=== PATIENT | female | born 1990 | race Caucasian/White ===

== ENCOUNTER 2016-11-30 21:11 | Observation (INO) | payer BC, MEDICAID, OTHER ==
[~2016-11-30] VITALS: Ht 172.7 cm; Wt 84.0 kg
[~2016-11-30 21:11] MED LIST: IBUP-232 PO; Z.0.NO CURRENT MEDS
[2016-11-30 21:13] VITALS: BP 143/85; PULSE 118; RESP 18; TEMP 98.3; O2SAT 100
[2016-11-30] MEDS ORDERED: LORA1TAB12 PO (22:11)
[2016-11-30 22:31] VITALS: RESP 18; O2SAT 100
--- NOTE | 2016-11-30 22:46 | PD ---
HPI Chief Complaint: Neuro Symptoms/ Deficits Time Seen by Provider: 22:07 Travel History International Travel<30 days: No Contact w/Intl Traveler<30days: No Traveled to known affect area: No History of Present Illness HPI The patient is a 26 year old female who presents to the [facility] emergency department with a history of neurologic symptoms that she reports have been coming and going since Tuesday. The patient reports that on Tuesday when she woke up in general she did not feel well. She reports that she felt lightheaded throughout the day while she was at work. She reports that she then had a 1 hour onset of difficulty speaking with slowing of her speech. The patient reportedly called her and and was not able to have a conversation at that time. The patient reports that she felt generalized weakness of all of her extremities. She reports that she was extremely fatigued and was sent home from work to take a nap. The patient then decided to go to the emergency department jennifer Yang for evaluation and treatment. The patient diagnosed with anxiety and sent home with a prescription for lorazepam. The patient reports that she has taken 1 tablet. It is a 1 mg tablet and she proceeded to sleep for 12 hours. Subsequent to that, the patient has had 2 additional episodes similar to this today. The first episode lasted for approximately an hour and a half, the second episode began just prior to arrival back into the emergency department room. The patient is speaking clearly although her speech is slow with frequent pauses. The patient reports having generalized weakness and is very slow to move her extremities although she appears anxious and is tapping the fingers of the right hand. The only recent new symptoms that the patient has had include on Tuesday night at work she had a migraine headache. She reports that she does have a history of migraine headaches, however none recently. She reports that she taken over-the- counter pain reliever and the headache resolved after a few hours. She has not had any headache since then. The patient additionally reports that she has been taking a friend's oral contraceptive over the last 3 months. She reports that her friend became and gave her the 3 packs of pills. Last week she completed the last pack and has not started on any other oral contraceptive since then. She reports that over the last 3 months she has not had a period. The patient has a pill pack at the bedside and was taking lo Loestrin with iron. Otherwise all review systems, the patient denies any recent fevers, cough , congestion, neck pain, chest pain, shortness of breath, abdominal pain, diarrhea, urinary symptoms, or other neurologic symptoms. The patient reports that she has had some nausea associated with this. She has not had any vomiting. The patient has been under increased stress recently. She reports that her friend was recently diagnosed with leukemia 3 weeks ago. LMP: 3 months ago [facility] Past Medical History Narrative Medical The patient's past medical history is significant for migraine headache, history of marijuana use in the past. Medical History: Denies Significant Hx Diminished Hearing: No Tetanus Vaccination: Unknown Influenza Vaccination: No ?: Not Past Surgical History Narrative Surgical Patient's past surgical history is significant for wisdom teeth extraction. Other Surgery: Yes (WISDOM TEETH) Family History Narrative Family History The patient has a family history of bipolar disorder in her mother. Social History Alcohol Use: Yes (OCCASSIONALLY) Tobacco Use: No Substance Use: Yes ([facility]) Allergies-Medications (Allergen,Severity, Reaction): Coded Allergies: No Known Allergies (Verified , 11/30/16) Reported Meds & Prescriptions Reported Meds & Active Scripts Active Reported Lorazepam 1 Mg Tab 1 Mg PO DAILY PRN Physical Exam Narrative General: The patient is well-developed well-nourished female, intermittently tearful on examination, however otherwise in no acute distress. Head and Neck exam: Head is normocephalic atraumatic. Eyes: EOMI, pupils are equal round and reactive to light. Nose: Midline septum with pink mucous membranes Mouth: Dentition unremarkable. Moist mucus membranes. Posterior oropharynx is not erythematous. No tonsillar hypertrophy. Uvula midline. Airway patent. Neck: No palpable lymphadenopathy. No nuchal rigidity. No thyromegaly. Negative Brudzinski, negative Kernig sign Cardiovascular: Regular rate and rhythm without murmurs, gallops, or rubs. Lungs: Clear to auscultation bilaterally. No wheezes, rhonchi, or rales. Abdomen: Soft, without tenderness to palpation in all 4 quadrants of the abdomen. No guarding, rebound, or rigidity. Normal bowel sounds are audible. No tenderness on palpation of McBurney's point. Extremities: No clubbing, cyanosis, or edema. 2+ pulses in all 4 extremities. Back: No spinous process tenderness to palpation. No costovertebral angle tenderness to palpation. Neurologic Exam: The patient is alert and oriented 4. The patient has cranial nerves II through XII intact. The patient on exam is very slow to answer questions, however her answers are appropriate. The patient is also slow to perform musculoskeletal neurologic testing, however she does have strength that is 5 over 5 in all 4 extremities. The patient has intact sensation over all dermatomes. Skin Exam: No rash noted. Intact skin that is warm and dry. Data Data Last Documented VS Vital Signs Date Time Temp Pulse Resp B/P (MAP) Pulse Ox O2 Delivery O2 Flow Rate FiO2 11/30/16 22:31 18 100 Room Air 11/30/16 21:13 98.3 118 Orders Orders Electrocardiogram (11/30/16 22:15) Complete Blood Count With Diff (11/30/16 22:15) Comprehensive Metabolic Panel (11/30/16 22:15) Prothrombin Time / Inr (Pt) (11/30/16 22:15) Act Partial Throm Time (Ptt) (11/30/16 22:15) Urinalysis - C+S If Indicated (11/30/16 22:15) Westergren Sedimentation Rate (11/30/16 22:15) Magnesium (Mg) (11/30/16 22:15) Thyroid Stimulating Hormone (11/30/16 22:15) Ct Brain W/O Iv Contrast(Rout) (11/30/16 22:15) Iv Access Insert/Monitor (11/30/16 22:15) Ecg Monitoring (11/30/16 22:15) Oximetry (11/30/16 22:15) Drug Screen, Random Urine (11/30/16 22:15) Alcohol (Ethanol) (11/30/16 22:15) Salicylates (Aspirin) (11/30/16 22:15) Tylenol (Acetaminophen) (11/30/16 22:15) Ed Urine Pregnancytest Poc (11/30/16 22:40) Potassium Chloride (Kcl) (12/01/16 00:15) Sodium Chlor 0.9% 1000 Ml Inj (Ns 1000 M (12/01/16 00:15) Ondansetron Inj (Zofran Inj) (12/01/16 00:15) Labs Laboratory Tests Test 11/30/16 22:38 11/30/16 22:54 White Blood Count 10.4 TH/MM3 Red Blood Count 4.60 MIL/MM3 Hemoglobin 14.5 GM/DL Hematocrit 43.3 % Mean Corpuscular Volume 93.9 FL Mean Corpuscular Hemoglobin 31.5 PG Mean Corpuscular Hemoglobin Concent 33.6 % Red Cell Distribution Width 13.3 % Platelet Count 251 TH/MM3 Mean Platelet Volume 8.0 FL Neutrophils (%) (Auto) 63.9 % Lymphocytes (%) (Auto) 29.4 % Monocytes (%) (Auto) 5.7 % Eosinophils (%) (Auto) 0.4 % Basophils (%) (Auto) 0.6 % Neutrophils # (Auto) 6.6 TH/MM3 Lymphocytes # (Auto) 3.0 TH/MM3 Monocytes # (Auto) 0.6 TH/MM3 Eosinophils # (Auto) 0.0 TH/MM3 Basophils # (Auto) 0.1 TH/MM3 CBC Comment DIFF FINAL Differential Comment Erythrocyte Sedimentation Rate 12 mm/hr Prothrombin Time 10.5 SEC Prothromb Time International Ratio 1.0 RATIO Activated Partial Thromboplast Time 27.2 SEC Blood Urea Nitrogen 15 MG/DL Creatinine 0.96 MG/DL Random Glucose 117 MG/DL Total Protein 8.0 GM/DL Albumin 4.0 GM/DL Calcium Level 9.5 MG/DL Magnesium Level 2.1 MG/DL Alkaline Phosphatase 74 U/L Aspartate Amino Transf (AST/SGOT) 21 U/L Alanine Aminotransferase (ALT/SGPT) 23 U/L Total Bilirubin 0.2 MG/DL Sodium Level 139 MEQ/L Potassium Level 3.4 MEQ/L Chloride Level 105 MEQ/L Carbon Dioxide Level 20.2 MEQ/L Anion Gap 14 MEQ/L Estimat Glomerular Filtration Rate 71 ML/MIN Thyroid Stimulating Hormone 3rd Gen 2.560 uIU/ML Salicylates Level LESS THAN 1.7 MG/DL Acetaminophen Level LESS THAN 2.0 MCG/ML Ethyl Alcohol Level LESS THAN 3 MG/DL Urine Color YELLOW Urine Turbidity CLEAR Urine pH 8.5 Urine Specific [place] 1.016 Urine Protein NEG mg/dL Urine Glucose (UA) NEG mg/dL Urine Ketones NEG mg/dL Urine Occult Blood NEG Urine Nitrite NEG Urine Bilirubin NEG Urine Urobilinogen LESS THAN 2.0 MG/DL Urine Leukocyte Esterase NEG Urine RBC 1 /hpf Urine WBC 1 /hpf Urine Squamous Epithelial Cells 1 /hpf Urine Bacteria RARE /hpf Microscopic Urinalysis Comment CULT NOT INDICATED Urine Opiates Screen NEG Urine Barbiturates Screen NEG Urine Amphetamines Screen NEG Urine Benzodiazepines Screen NEG Urine Cocaine Screen NEG Urine Cannabinoids Screen NEG MDM Medical Decision Making Medical Screen Exam Complete: Yes Emergency Medical Condition: Yes Medical Record Reviewed: Yes Interpretation(s) Last Impressions Head CT 11/30/16 2186 Signed Impressions: Service Date/Time: Wednesday, November 30, 2016 23:13 - CONCLUSION: 1. No acute intracranial abnormality. Roc Velez MD Differential Diagnosis Ischemic stroke, versus intracranial mass, versus multiple sclerosis, versus psychiatric disorder, versus Guillain-Carr, versus lupus cerebritis Narrative Course During the course of the patients emergency department visit, the patients history, examination, and differential diagnosis were reviewed with the patient. The patient had IV access obtained and blood work sent for analysis. The patient was placed on a night monitor with oximetry and blood pressure monitoring. CT scan of the brain was ordered. The patient was initially provided a normal saline 1 L IV fluid bolus, Zofran 4 mg IV. patients laboratory studies were reviewed and remarkable for a white count of 10.4, hemoglobin 14.5, platelets 251 with a normal differential, sedimentation rate is 12, CMP is remarkable for potassium of 3.4, CO2 20.2, glucose 117, TSH 2.56, PT PTT within normal limits, urinalysis is unremarkable, urinalysis screen is negative, salicylate less than 1.7, acetaminophen less than 2, alcohol level less than 3. Radiology studies were reviewed and remarkable for a CT scan of the brain that shows no acute intracranial abnormality. The patient was reexamined. The patient's symptoms have completely resolved. The patient is awake and alert, speaking at a normal rate. The patient is moving all extremities equally with 5 over 5 strength. The patient incidentally reports that over the last year she has also had difficulty with short-term memory. The patient is agreeable with the plan to proceed with admission for observation and neurologic consultation including an MRI of the brain in the morning. The patients results were discussed with the patient, including the plan of care. I explained that further testing and/ or monitoring is indicated based on the patients history, examination, and/ or laboratory findings. Therefore, I recommended admission for additional evaluation. The patient expressed understanding and was agreeable with this plan. The patient was admitted to the hospital in stable condition and sent to a bed under the care of [facility]. Diagnosis Primary Impression: Transient neurological symptoms Admitting Information Admitting Physician Requests: Observation Saima Waterman MD Nov 30, 2016 22:46
[2016-11-30 23:00] VITALS: BP 134/84; PULSE 92; RESP 18; O2SAT 99
[2016-11-30 23:06] LABS: AUTOMATED NEUTROPHIL # 6.6 TH/MM3 (1.8-7.7); BASOPHIL # 0.1 TH/MM3 (0-0.2); BASOPHIL % 0.6 % (0.0-2.0); EOSINOPHIL % 0.4 % (0.0-4.0); HEMATOCRIT 43.3 % (35.0-46.0); HEMO FLAGS DIFF FINAL; LYMPH % 29.4 % (9.0-44.0); MEAN CELL VOLUME 93.9 FL (80.0-100.0); MEAN CORPUSCULAR HEMOGLOBIN 31.5 PG (27.0-34.0); MEAN CORPUSCULAR HGB CONC 33.6 % (32.0-36.0); MONO % 5.7 % (0.0-8.0); NEUT % 63.9 % (16.0-70.0); PLATELET COUNT 251 TH/MM3 (150-450); RED CELL DISTRIBUTION WIDTH 13.3 % (11.6-17.2); WHITE BLOOD COUNT 10.4 TH/MM3 (4.0-11.0)
[2016-11-30 23:15] LABS: APTT (PATIENT) 27.2 SEC (24.3-30.1); PROTHROMBIN TIME - PATIENT 10.5 SEC (9.8-11.6)
[2016-11-30 23:16] LABS: BACTERIA, URINE RARE /hpf; BLOOD, URINE NEG (NEG); COMMENT (UR) CULT NOT INDICATED; CULTURE IF INDICATED CULT NOT INDICATED; GLUCOSE,URINE NEG (NEG); KETONE, URINE NEG (NEG); NITRITE,URINE NEG (NEG); PH, URINE 8.5 (5.0-8.5); SQUAMOUS EPITHELIAL CELL URINE 1 /hpf (0-5); URINE COLOR YELLOW (YELLW/STRAW)
[2016-11-30 23:34] LABS: ALT (GPT) 23 U/L (10-53)
--- NOTE | 2016-11-30 23:36 | RADRPT ---
EXAM DATE/TIME: 11/30/2016 23:13 [place] COMPARISON: No previous studies available for comparison. INDICATIONS : Altered mental status. RADIATION DOSE: 56.35 CTDIvol (mGy) MEDICAL HISTORY : None SURGICAL HISTORY : None. ENCOUNTER: Initial ACUITY: 1 day PAIN SCALE: 0/10 LOCATION: cranial TECHNIQUE: Multiple contiguous axial images were obtained of the head. Using automated exposure control and adj ustment of the mA and/or kV according to patient size, radiation dose was kept as low as reasonably a chievable to obtain optimal diagnostic quality images. DICOM format image data is available electro nically for review and comparison. FINDINGS: CEREBRUM: The ventricles are normal for age. No evidence of midline shift, mass lesion, hemorrhage or acute in farction. No extra-axial fluid collections are seen. POSTERIOR FOSSA: The cerebellum and brainstem are intact. The 4th ventricle is midline. The cerebellopontine angle i s unremarkable. EXTRACRANIAL: The visualized portion of the orbits is intact. SKULL: The calvaria is intact. No evidence of skull fracture. CONCLUSION: 1. No acute intracranial abnormality. Roc Velez MD on November 30, 2016 at 23:33 Board Certified Radiologist. This report was verified electronically.
[2016-11-30 23:43] LABS: ALKALINE PHOSPHATASE 74 U/L (45-117); TOTAL BILIRUBIN ADULT 0.2 MG/DL (0.2-1.0)
[2016-11-30 23:53] LABS: ANION GAP 14 MEQ/L (5-15); AST (GOT) 21 U/L (15-37); BICARBONATE 20.2 MEQ/L (21.0-32.0); BLOOD UREA NITROGEN 15 MG/DL (7-18); CHLORIDE 105 MEQ/L (98-107); GLOMERULAR FILTRATION RATE 71 ML/MIN (>89); MAGNESIUM 2.1 MG/DL (1.5-2.5); POTASSIUM 3.4 MEQ/L (3.5-5.1); SODIUM (NA) 139 MEQ/L (136-145)
[2016-11-30 23:56] LABS: ACETAMINOPHEN LESS THAN 2.0 MCG/ML (10.0-30.0); ALCOHOL LESS THAN 3 MG/DL (0-5)
[2016-12-01] VITALS (13 sets, daily range): BP systolic 108–146; BP diastolic 59–89; PULSE 57–90; RESP 16–18; TEMP 97.4–98.4; O2SAT 98–100
[2016-12-01] MEDS ORDERED: POTASSIUM CHLORIDE 20 MEQ CONTROLLED RELEASE TAB PO ONE (00:15)
[2016-12-01] MEDS ORDERED: SODIUM CHLOR 0.9% 1000 ML INJ 1,000 ML IV ONE (00:15)
[2016-12-01] MEDS ORDERED: ONDANSETRON HCL 4 MG/2 ML VIAL IV ONE (00:15)
[2016-12-01] MEDS ORDERED: SODIUM CHLORIDE 0.9% FLUSH 5 ML FLUSH IV FLUSH PRN (01:00)
--- NOTE | 2016-12-01 01:55 | HHI.HP ---
[facility] Primary [facility] Physician Unknown Admission Diagnosis Transient intermittent neurologic symptoms Diagnoses: Travel History International Travel<30 Days: No Contact w/Intl Traveler <30 Da: No Traveled to Known Affected Are: No History of Present Illness History from patient, ER physician communication, and review of medical records. Patient reported that starting Tuesday around 3:30 PM, she was having trouble speaking. 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 When this event happens, her roommate had called her aunt in [facility] Her aunt told her to call 911 and one in the ambulance personnel came to her house, patient stated she was hyperventilating and they had to calm her down with some medications. She stated she possibly came back to speaking to her normal when they actually put in an IV line on her. She stated this might be because of the pain. She was discharged from ER after minimal workup with blood work. No imaging studies were done as further she remembers. She was discharged home on Ativan and was told to take it one she has panic attacks. She stated that she took one last night and had slept for 12 hours with it. Today, patient was visiting her friend in [facility] is in hospital with leukemia. After her visit to the friend, she visited her aunt and at her aunt's house, she stated that the episode happens again where she felt she was not able to speak, she felt drowsy, feeling as though she was given to faint and "woozy". She then again got panicked because of this feeling and started hyperventilating. She reports that the events did not start with panic attack. She states the panic attacks happens because she was having trouble speaking and feeling drowsiness and almost passing out. The aunt and encouraged her to come to hospital here. Patient reports of prior episode of anxiety but this was one she had severe stress from school. She reports that at that time she was started on Latuda which helped. She did not need it after she finished the school. She denies any prior history of any medical conditions. She was taking oral contraceptives up until about a week ago for about 3 months. She denies any marijuana use T use. Denies any prior history of seizures. However she reports of history of migraines many years ago. She also recalls now that on Tuesday before these events, she was having pretty severe headaches Patient also reports of having had trouble with depth perception and memory problems for about a year. She reports that she visited [place] about a year ago and had severe vertigo after which she had this depth perception problems. Review of Systems Except as stated in HPI: all other systems reviewed are Neg Past Family Social History Past Medical History migraines- not even on prophylactic control meds heart tolbert Past Surgical History wisdom teeth sx Allergies: Coded Allergies: No Known Allergies (Verified , 11/30/16) Family History mom- bipolar, migraines, lactose intolerant; 7 yrs ago grandfather and uncles- mi in their 70s Social History never really smoked social drinker no drugs - once or twice marijuna, in distant past Physical Exam Vital Signs Vital Signs Date Time Temp Pulse Resp B/P (MAP) Pulse Ox O2 Delivery O2 Flow Rate FiO2 12/01/16 01:17 70 18 109/67 (81) 99 Room Air 11/30/16 23:00 92 18 134/84 (101) 99 Room Air 11/30/16 22:31 18 100 Room Air 11/30/16 21:13 98.3 118 18 143/85 (104) 100 Physical Exam GENERAL: This is a well-nourished, well-developed patient, in no apparent distress. SKIN: No rashes, ecchymoses or lesions. Cool and dry. HEAD: Atraumatic. Normocephalic. No temporal or scalp tenderness. EYES: No scleral icterus. No injection or drainage. ENT: Nose without bleeding, purulent drainage or septal hematoma. Airway patent. NECK: Trachea midline. No JVD CARDIOVASCULAR: Regular rate and rhythm without murmurs, gallops, or rubs. RESPIRATORY: Clear to auscultation. Breath sounds equal bilaterally. No wheezes , rales, or rhonchi. GASTROINTESTINAL: Abdomen soft, non-tender, nondistended. No guarding. MUSCULOSKELETAL: Extremities without clubbing, cyanosis, or edema. . No calf tenderness. NEUROLOGICAL: Awake and alert. Motor and sensory grossly within normal limits. Normal speech. Laboratory Laboratory Tests Test 11/30/16 22:38 11/30/16 22:54 White Blood Count 10.4 Red Blood Count 4.60 Hemoglobin 14.5 Hematocrit 43.3 Mean Corpuscular Volume 93.9 Mean Corpuscular Hemoglobin 31.5 Mean Corpuscular Hemoglobin Concent 33.6 Red Cell Distribution Width 13.3 Platelet Count 251 Mean Platelet Volume 8.0 Neutrophils (%) (Auto) 63.9 Lymphocytes (%) (Auto) 29.4 Monocytes (%) (Auto) 5.7 Eosinophils (%) (Auto) 0.4 Basophils (%) (Auto) 0.6 Neutrophils # (Auto) 6.6 Lymphocytes # (Auto) 3.0 Monocytes # (Auto) 0.6 Eosinophils # (Auto) 0.0 Basophils # (Auto) 0.1 CBC Comment DIFF FINAL Differential Comment Erythrocyte Sedimentation Rate 12 Prothrombin Time 10.5 Prothromb Time International Ratio 1.0 Activated Partial Thromboplast Time 27.2 Blood Urea Nitrogen 15 Creatinine 0.96 Random Glucose 117 Total Protein 8.0 Albumin 4.0 Calcium Level 9.5 Magnesium Level 2.1 Alkaline Phosphatase 74 Aspartate Amino Transf (AST/SGOT) 21 Alanine Aminotransferase (ALT/SGPT) 23 Total Bilirubin 0.2 Sodium Level 139 Potassium Level 3.4 Chloride Level 105 Carbon Dioxide Level 20.2 Anion Gap 14 Estimat Glomerular Filtration Rate 71 Thyroid Stimulating Hormone 3rd Gen 2.560 Salicylates Level LESS THAN 1.7 Acetaminophen Level LESS THAN 2.0 Ethyl Alcohol Level LESS THAN 3 Urine Color YELLOW Urine Turbidity CLEAR Urine pH 8.5 Urine Specific [place] 1.016 Urine Protein NEG Urine Glucose (UA) NEG Urine Ketones NEG Urine Occult Blood NEG Urine Nitrite NEG Urine Bilirubin NEG Urine Urobilinogen LESS THAN 2.0 Urine Leukocyte Esterase NEG Urine RBC 1 Urine WBC 1 Urine Squamous Epithelial Cells 1 Urine Bacteria RARE Microscopic Urinalysis Comment CULT NOT INDICATED Urine Opiates Screen NEG Urine Barbiturates Screen NEG Urine Amphetamines Screen NEG Urine Benzodiazepines Screen NEG Urine Cocaine Screen NEG Urine Cannabinoids Screen NEG Result Diagram: 11/30/16223711/30/162237 Imaging Last [address] 11/30/162214 Signed Impressions: Service Date/Time: Wednesday, November 30, 2016 23:13 - CONCLUSION: 1. No acute intracranial abnormality. Roc Bozorgmanesh, MD Caprini VTE Risk Assessment Caprini VTE Risk Assessment: No/Low Risk (score <= 1) Caprini Risk Assessment Model Point Value = 1 Point Value = 2 Point Value = 3 Point Value = 5 Age 41-60 Minor surgery BMI > 25 kg/m2 Swollen legs Varicose veins or History of unexplained or recurrent spontaneous Oral contraceptives or hormone replacement Sepsis (< 1 month) Serious lung disease, including pneumonia (< 1 month) Abnormal pulmonary function Acute myocardial infarction Congestive heart failure (< 1 month) History of inflammatory bowel disease Medical patient at bed rest Age 61-74 Arthroscopic surgery Major open surgery (> 45 min) Laparoscopic surgery (> 45 min) Malignancy Confined to bed (> 72 hours) Immobilizing plaster cast Central venous access Age >= 75 History of VTE Family history of VTE Factor V Leiden Prothrombin [id number] Lupus anticoagulant Anticardiolipin antibodies Elevated serum homocysteine Heparin-induced thrombocytopenia Other congenital or acquired thrombophilia Stroke (< 1 month) Elective arthroplasty Hip, pelvis, or leg fracture Acute spinal cord injury (< 1 month) Prophylaxis Regimen Total Risk Factor Score Risk Level Prophylaxis Regimen 0-1 Low Early ambulation 2 Moderate Order ONE of the following: *Sequential Compression Device (SCD) *Heparin 5000 units SQ BID 3-4 Higher Order ONE of the following medications: *Heparin 5000 units SQ TID *Enoxaparin/Lovenox 40 mg SQ daily (WT < 150 kg, CrCl > 30 mL/min) *Enoxaparin/Lovenox 30 mg SQ daily (WT < 150 kg, CrCl > 10-29 mL/min) *Enoxaparin/Lovenox 30 mg SQ BID (WT < 150 kg, CrCl > 30 mL/min) AND/OR *Sequential Compression Device (SCD) 5 or more Highest Order ONE of the following medications: *Heparin 5000 units SQ TID (Preferred with Epidurals) *Enoxaparin/Lovenox 40 mg SQ daily (WT < 150 kg, CrCl > 30 mL/min) *Enoxaparin/Lovenox 30 mg SQ daily (WT < 150 kg, CrCl > 10-29 mL/min) *Enoxaparin/Lovenox 30 mg SQ BID (WT < 150 kg, CrCl > 30 mL/min) AND *Sequential Compression Device (SCD) Assessment and Plan Assessment and Plan Impression: Transient Neurological Deficits- r/o seizures vs MS vs TIAs Possible migraine attacks- atypical Plan: neurochecks eeg MRI of brain neurology consult orthostatic vitals DVT prophylaxis with SCD Discussed Condition With patient, ER Tera Montes MD Dec 01, 2016 01:55
--- NOTE | 2016-12-01 09:59 | MB ---
cc: REBEKAH GOLDSTEIN M.D. DATE OF CONSULTATION 12/01/2016 REASON FOR CONSULTATION Neurological change. HISTORY OF PRESENT ILLNESS This is a pleasant 26-year-old female who since Tuesday has had several episodes where her whole body feels heavy. She cannot lift her arms or legs because of weakness. She feels numb diffusely and cannot talk at all. It lasts various periods of times several minutes up to an hour or two and then resolves. Sometimes she has a headache afterwards. Some times she does not with photophobia and nausea. She feels anxious afterwards. She went to an ER in [place]. They felt it was anxiety, gave her Ativan, but she still had several episodes with several yesterday as well. PAST MEDICAL HISTORY History of migraine headaches. Otherwise unremarkable. MEDICATIONS None ALLERGIES None FAMILY HISTORY Her mother has migraine headaches, bipolar disorder. SOCIAL HISTORY No drug abuse, currently does not smoke, drinks alcohol rarely. NEUROLOGIC EXAMINATION VITAL SIGNS: Blood pressure 108/59 supine, standing 121/76, pulse 57, respirations 16, temperature 97.7 degrees. Higher cortical functions normal. Cranial nerves II-XII are normal in detail. Motor exam 5/5 strength of all groups in both upper and lower extremities. There is no drift. Reflexes symmetric. There is no Babinski. CT brain normal. LABORATORY DATA White count is 10,400, hemoglobin is 14.5, hematocrit 43%, platelets 251,000, sed rate is 12. Sodium is 139, potassium 3.4, chloride 105, CO2 20, the BUN is 15, creatinine 0.96, GFR 71, glucose 117, calcium 9.5, AST 29, ALT 23, TSH 2.56, PT 10.59, INR 1, APTT 27.2. Tox screen is negative. Urinalysis, pH is 8.5, specific gravity 1.016. IMPRESSION Possible basilar artery migraine rule out basilar artery TIA, rule out demyelinating disease such as MS, rule out psychological etiologies. RECOMMENDATIONS Start aspirin for possible TIA, also check hypercoagulable workup, as well as an echocardiogram. I would like to get an MRI of the brain as well as an MRA of the brain as well as an MRA of the neck. Consider transesophageal echo as well. We will start Topamax for possible migraine prophylaxis, also EEG. MD JOSE L Talbert /9:09 AM /9:44 AM
[2016-12-01 10:23] LABS: HEMOGLOBIN A1a 1.3 %; HEMOGLOBIN A1b 1.6 %; HEMOGLOBIN Ao 86.2 %; HEMOGLOBIN P3 3.4 %
[2016-12-01] MEDS ORDERED: GADODIAMIDE PF 287 MG/ML 20 ML VIAL (for RAD MRI) IVCONTRAST ONE (11:39)
[2016-12-01] MEDS: ASPIRIN 325 MG TAB PO SCH (12:18)
[2016-12-01] MEDS: SODIUM CHLORIDE 0.9% FLUSH 5 ML FLUSH IV FLUSH SCH ×2 (12:18→20:44)
[2016-12-01] MEDS: TOPIRAMATE 25 MG TAB PO SCH ×2 (12:19→20:42)
--- NOTE | 2016-12-01 12:49 | RADRPT ---
EXAM DATE/TIME: 12/01/2016 11:36 [facility] COMPARISON: No previous studies available for comparison. INDICATIONS : TIA. Intermittent loss of speech, motor functions, and memory loss. CONTRAST: 20 cc Omniscan (gadodiamide) IV MEDICAL HISTORY : None. SURGICAL HISTORY : None. ENCOUNTER: Subsequent ACUITY: 2 day PAIN SCORE: 0/10 LOCATION: head. TECHNIQUE: Multiplanar, multisequence MRI of the brain was performed both prior to and following the administrat ion of paramagnetic contrast. FINDINGS: CEREBRUM: The ventricles are normal for age. No evidence of midline shift, mass lesion, hemorrhage or acute in farction. No extraaxial fluid collections are seen. The pituitary gland and suprasellar cistern are normal in configuration. WHITE MATTER: No significant signal abnormalities are seen in the white matter. POSTERIOR FOSSA: The cerebellum and brainstem are intact. The 4th ventricle is midline. The cerebellopontine angle is unremarkable. The cerebellar tonsils are normal in position. DIFFUSION IMAGING: No focal areas of restricted diffusion are seen. No evidence of acute infarction. EXTRACRANIAL: The visualized portions of the orbits and paranasal sinuses are unremarkable. POST-CONTRAST: No abnormal areas of parenchymal or dural enhancement. No evidence of blood-brain barrier breakdown. CONCLUSION: Negative MRI of the brain with and without contrast. Lucas Palomo MD on December 01, 2016 at 12:46 Board Certified Radiologist. This report was verified electronically.
--- NOTE | 2016-12-01 12:50 | RADRPT ---
EXAM DATE/TIME: 12/01/2016 11:36 [facility] COMPARISON: No previous studies available for comparison. INDICATIONS : TIA. Intermittent loss of speech, motor functions, and memory loss. MEDICAL HISTORY : None. SURGICAL HISTORY : None. ENCOUNTER: Subsequent ACUITY: 2 day PAIN SCORE: 0/10 LOCATION: head. Please note a normal MRA of the brain does not entirely exclude the possibility of a small aneurysm, nor the possibility of distal intracranial vessel disease. TECHNIQUE: 3D time of flight MRA was performed. Source images, multiplanar STS MIP, and 3D volume MIP reconstru ctions were reviewed. FINDINGS: There is excellent visualization of the major intracranial arteries out to the second-order branch ve ssels. There is no evidence for aneurysm, vessel truncation or stenosis, and no evidence for vascula r malformation. Flow is seen in the anterior communicating artery and both PCOM. CONCLUSION: Normal MRA of the [place]. Lucas Palomo MD on December 01, 2016 at 12:48 Board Certified Radiologist. This report was verified electronically.
--- NOTE | 2016-12-01 12:52 | RADRPT ---
EXAM DATE/TIME: 12/01/2016 11:36 [facility] COMPARISON: No previous studies available for comparison. INDICATIONS : Stenosis. Intermittent loss of speech, motor functions, and memory loss. CONTRAST: 20 cc Omniscan (gadodiamide) IV MEDICAL HISTORY : None. SURGICAL HISTORY : None. ENCOUNTER: Subsequent ACUITY: 2 day PAIN SCORE: 0/10 LOCATION: neck. Percent stenosis is calculated using the diameter of the stenotic region over the diameter of the nor mal distal internal carotid artery. TECHNIQUE: Bolus infused MRA of the extracranial circulation was performed using a neurovascular coil. Post pro cessing was performed including rotating subvolume maximum intensity projections of each carotid miguelina ry, rotating full volume maximum intensity projections of both carotid arteries, sagittal and coronal sliding thin slab reformations of each carotid artery, and left oblique sliding thin slab reformatio n through the aortic arch to include the origin of the arch branch vessels. FINDINGS: AORTIC ARCH: There is a two vessel origin of the great vessels from the aorta with common trunk of the right brach iocephalic and left carotid. No evidence of ostial narrowing. RIGHT CAROTID: The common carotid artery is intact. The carotid bulb has a normal configuration without ulceration or narrowing. The internal carotid artery lumen is smooth without stenosis. The external carotid ar maldonado is intact. LEFT CAROTID: The common carotid artery is intact. The carotid bulb has a normal configuration without ulceration or narrowing. The internal carotid artery lumen is smooth without stenosis. The external carotid ar maldonado is intact. VERTEBRALS: The vertebral arteries have a symmetric diameter. No stenotic lesions are seen. CONCLUSION: Negative carotid MRA Lucas Palomo MD on December 01, 2016 at 12:49 Board Certified Radiologist. This report was verified electronically.
--- NOTE | 2016-12-01 13:42 | EKG ---
Date Performed: 11/30/2016 Time Performed: 22:40:17 PTAGE: 26 years EKG: Sinus rhythm NORMAL ECG NO PREVIOUS TRACING DOCTOR: Dennys Waterman Interpretating Date/Time 12/01/2016 13:38:41
[2016-12-01 17:48] LABS: BETA HCG QUANT LESS THAN 1 MIU/ML (0-5)
[2016-12-02] VITALS: PULSE 78
[2016-12-02 03:26] VITALS: BP 116/64; PULSE 66; RESP 18; TEMP 97.5; O2SAT 98
[2016-12-02 04:00] VITALS: PULSE 66
--- NOTE | 2016-12-02 06:13 | MG ---
cc: JAC ANN MD Lab No: [id number] Date: 12/11/2016 Age: 26 Sex: F Race: EEG RECORD NUMBER [id number] DATE OF 1990 NOTE A 26-year-old with history of anxiety, migraine, difficulty with speech transiently. FINDINGS Posterior rhythm demonstrates 8-10 Hz activity, 20-50 microvolts, low amplitude beta in the frontal channels. Good anterior-posterior gradient. Good EEG variability and reactivity was appreciated. Photic stimulation produced an appropriate driving response. Hyperventilation performed. No abnormal response. Attenuation of background slowing, transition into drowsy state. Slight rhythmic theta T5, epoch 61. Higher amplitude beta/theta T3, epoch 65, followed by transition into drowsy, Stage I sleep with the appearance of vertex waves. Single lead EKG showing sinus rhythm. INTERPRETATION Normal awake/sleep EEG. Could consider extended EEG monitoring if clinically indicated. Jac Ann MD MG/SSB /8:24 PM /6:04 AM
[2016-12-02 07:11] VITALS: BP_SYST 109; BP_SYST 132; BP_SYST 136; BP_DIAS 72; BP_DIAS 79; PULSE 64; RESP 16; TEMP 97.8; O2SAT 98
[2016-12-02 07:15] VITALS: PULSE 63
[2016-12-02] MEDS ORDERED: SODIUM CHLOR 0.9% 1000 ML INJ 1,000 ML IV SCH (08:00)
[2016-12-02] MEDS: TOPIRAMATE 25 MG TAB PO SCH (08:11)
[2016-12-02] MEDS: ASPIRIN 325 MG TAB PO SCH (08:12)
[2016-12-02] MEDS: SODIUM CHLORIDE 0.9% FLUSH 5 ML FLUSH IV FLUSH SCH (08:12)
--- NOTE | 2016-12-02 11:27 | HHI.PR ---
Subjective Remarks Follow up for transient neurological deficits. Patient is doing well. No further episodes. No CP, SOB, fever, chills. Patient reports that she thought about what brings her symptoms on. She says..whenever she is trying to remember a past event, past memory, she experiences aphasia, inability move. Her aunts noticed this pattern too, according to patient. Objective Vitals Vital Signs Date Time Temp Pulse Resp B/P (MAP) Pulse Ox O2 Delivery O2 Flow Rate FiO2 12/02/16 07:15 63 12/02/16 07:11 97.8 64 16 109/72 (84) 98 132/72 (92) 136/79 (98) 12/02/16 04:00 66 12/02/16 03:26 97.5 66 18 116/64 (81) 98 12/02/16 00:00 78 12/01/16 20:00 84 12/01/16 19:19 97.4 74 18 121/78 (92) 99 12/01/16 15:56 77 12/01/16 15:45 98.4 62 16 124/76 (92) 98 139/82 (101) 141/73 (95) 12/01/16 12:26 98.0 90 16 119/77 (91) 100 146/82 (103) I/O 12/01/16 12/01/16 12/01/16 12/02/16 12/02/16 12/02/16 07:00 15:00 23:00 07:00 15:00 23:00 Intake Total 1240 ml Balance 1240 ml Intake Oral 240 ml IV Total 1000 ml # Voids 1 1 1 Result Diagram: 11/30/16223711/30/162237 Imaging Last Impressions Neck Magnetic Resonance Angiography 12/01/16 0000 Signed Impressions: Service Date/Time: Thursday, December 01, 2016 11:36 - CONCLUSION: Negative carotid MRA Lucas Palomo MD Head Magnetic Resonance Angiography 12/01/16 0000 Signed Impressions: Service Date/Time: Thursday, December 01, 2016 11:36 - CONCLUSION: Normal MRA of the [place]. Lucas Palomo MD Brain MRI 12/01/16 0000 Signed Impressions: Service Date/Time: Thursday, December 01, 2016 11:36 - CONCLUSION: Negative MRI of the brain with and without contrast. Lucas Palomo MD Head CT 11/30/16 [id number] Signed Impressions: Service Date/Time: Wednesday, November 30, 2016 23:13 - CONCLUSION: 1. No acute intracranial abnormality. Roc Velez MD Objective Remarks GENERAL: Alert, Oriented x 3, NAD. SKIN: Warm and dry. HEAD: Normocephalic. EYES: No scleral icterus. No injection or drainage. NECK: Supple, trachea midline. No JVD or lymphadenopathy. CARDIOVASCULAR: Regular rate and rhythm without murmurs, gallops, or rubs. RESPIRATORY: Breath sounds equal bilaterally. No accessory muscle use. GASTROINTESTINAL: Abdomen soft, non-tender, nondistended. MUSCULOSKELETAL: No cyanosis, or edema. BACK: Nontender without obvious deformity. No CVA tenderness. Procedures Echo Normal left ventricular size. Wall thickness is normal. The left ventricular systolic function is normal with an estimated ejection fraction in the range of 55-60%. Atrial septal aneurysm is present - no shunting seen. Trivial to mild tricuspid regurgitation. The pulmonary valve is not well visualized. A/P Assessment and Plan Ms. Bailey is a pleasant 26 year old female with no significant medical history who was admitted due to transient neurological deficits. Radiological studies did not reveal any acute findings. Echo normal. - Probable transient epileptic amnesia - Probable TIA - although symptoms are not consistent with TIA - Migraine headache - Discussed with Dr. Hill. We will increase the dose of topamax to 100mg BID. This should help with migraine headache as well as possible seizure. - Patient is advised to follow up with Dr. Hill in two weeks. - Continue aspirin 81mg Qday as well. Full code. Discharge patient to home Condition on discharge: Improved Regular Diet as tolerated Ad Olya activity Rx written: - Aspirin 81mg Qday - Topamax 100mg BID Follow-up with primary care physician within one week, PRN. Neurology in 2 weeks. Rafael Espinosa DO Dec 02, 2016 11:27
[2016-12-02] MEDS ORDERED: ASPI81TA11 PO (11:54)
[2016-12-02] MEDS ORDERED: TOPA100T11 PO (11:54)
[2016-12-02 12:03] VITALS: BP_SYST 111; BP_SYST 116; BP_SYST 133; BP_DIAS 67; BP_DIAS 73; BP_DIAS 80; PULSE 77; RESP 16; TEMP 98.2; O2SAT 98
--- NOTE | 2016-12-02 12:03 | ECHRPT ---
Indication: TIA CONCLUSIONS Normal left ventricular size. Wall thickness is normal. The left ventricular systolic function is normal with an estimated ejection fraction in the range of 55-60%. Atrial septal aneurysm is present - no shunting seen. Trivial to mild tricuspid regurgitation. The pulmonary valve is not well visualized. BP: 127 / 82 HR: 78 Rhythm: Sinus MEASUREMENTS (Male / Female) Normal Values Technical Quality:Good 2D ECHO LV Diastolic Diameter PLAX 4.7 cm 4.2 - 5.9 / 3.9 - 5.3 cm LV Systolic Diameter PLAX 3.5 cm IVS Diastolic Thickness 0.9 cm 0.6 - 1.0 / 0.6 - 0.9 cm LVPW Diastolic Thickness 0.8 cm 0.6 - 1.0 / 0.6 - 0.9 cm LV Relative Wall Thickness 0.4 LA Systolic Diameter LX 3.3 cm 3.0 - 4.0 / 2.7 - 3.8 cm M-MODE Aortic Root Diameter MM 2.6 cm AV Cusp Separation MM 1.9 cm DOPPLER Mitral E Point Velocity 99.2 cm/s Mitral A Point Velocity 44.4 cm/s Mitral E to A Ratio 2.2 TR Peak Velocity 231.0 cm/s TR Peak Gradient 21.3 mmHg FINDINGS LEFT VENTRICLE Normal left ventricular size. Wall thickness is normal. The left ventricular systolic function is normal with an estimated ejection fraction in the range of 55-60%. RIGHT VENTRICLE Normal right ventricular size and systolic function. LEFT ATRIUM The left atrial size is normal. RIGHT ATRIUM The right atrial size is normal. ATRIAL SEPTUM Atrial septal aneurysm is present - no shunting seen. AORTA The aortic root and proximal ascending aorta are normal in size on limited imaging. MITRAL VALVE Structurally normal mitral valve. No mitral valve stenosis or regurgitation. AORTIC VALVE Trileaflet aortic valve. No aortic valve stenosis or regurgitation. TRICUSPID VALVE Structurally normal tricuspid valve. Trivial to mild regurgitation. PULMONARY VALVE The pulmonary valve is not well visualized. VESSELS The inferior vena cava is normal in size. PERICARDIUM No pericardial effusion. Dennys Waterman MD (Electronically Signed) Final Date:02 December 2016 12:03
[2016-12-02 12:44] LABS: HDL CHOLESTEROL 75.1 MG/DL (40.0-60.0)
[2016-12-05 03:52] LABS: THROMBIN TIME FOR LA ND sec (13-19)
== END 2016-12-02 13:30 | disposition home or self-care (01) ==
LOC: NEPE 21:11 → NEDA 12-01 00:24 → NEPFCDU 12-01 02:22
PROVIDERS: ADMIT Hospitalist; ATTEND Hospitalist
DX: R29.818 Other symptoms and signs involving the nervous system (principal); G43.909 Migraine, unspecified, not intractable, without status migrainosus; F41.0 Panic disorder [episodic paroxysmal anxiety]; R47.01 Aphasia; Z79.82 Long term (current) use of aspirin
CPT/HCPCS: 70450; 70544; 70548; 70553; 80053; 80061; 80307; 81001; 81240; 81241; 83036; 83735; 84443; 84702; 84703; 85025; 85303; 85306; 85597; 85598; 85610; 85613; 85652; 85730; 86147; 93005; 93306; 95819; 96361; 96374; 99285; A9579; G0378; J2405; J7030

== ENCOUNTER 2016-12-14 10:05 | Day surgery (SDC) | payer BC ==
[~2016-12-14] VITALS: Ht 172.7 cm; Wt 81.8 kg
[~2016-12-14 10:05] MED LIST changes: +ASPI81TA11 PO; -IBUP-232 PO; +LORA1TAB12 PO; +TOPA100T11 PO; -Z.0.NO CURRENT MEDS
[2016-12-14 10:23] VITALS: BP 148/80; PULSE 79; RESP 18; TEMP 98.2; O2SAT 100
[2016-12-14 11:22] LABS: AUTOMATED NEUTROPHIL # 4.3 TH/MM3 (1.8-7.7); BASOPHIL % 0.3 % (0.0-2.0); EOSINOPHIL % 0.4 % (0.0-4.0); HEMATOCRIT 41.6 % (35.0-46.0); HEMO FLAGS DIFF FINAL; LYMPH % 26.9 % (9.0-44.0); LYMPHOCYTE # 1.8 TH/MM3 (1.0-4.8); MEAN CELL VOLUME 92.1 FL (80.0-100.0); MEAN CORPUSCULAR HEMOGLOBIN 31.6 PG (27.0-34.0); MEAN CORPUSCULAR HGB CONC 34.3 % (32.0-36.0); NEUT % 66.4 % (16.0-70.0); PLATELET COUNT 187 TH/MM3 (150-450); RED BLOOD COUNT 4.51 MIL/MM3 (4.00-5.30); RED CELL DISTRIBUTION WIDTH 12.8 % (11.6-17.2); WHITE BLOOD COUNT 6.6 TH/MM3 (4.0-11.0)
[2016-12-14 11:30] LABS: APTT (PATIENT) 33.3 SEC (24.3-30.1); PROTHROMBIN TIME - PATIENT 11.1 SEC (9.8-11.6)
--- NOTE | 2016-12-14 11:43 | PD.RAD ---
Post Procedure Progress Note Pre Procedure Diagnosis: (1) Altered mental state Post Procedure Diagnosis: (1) Altered mental state Procedure Date: Dec 14, 2016 Supervising Radiologist: Leopoldo Bourgeois Estimated blood loss: None Anesthesia: Local Plan of Activity Patient to Unit: ROPU Patient Condition: Good Additional Comments: LP completed without difficulty. Opening pressure 17-18 cmH2O Fluid clear. 21 cc csf obtained. Full dictated report to follow See PACS Report for procedural detail/treatment Leopoldo Bourgeois MD Dec 14, 2016 11:43
[2016-12-14 11:49] VITALS: BP 150/80; PULSE 79; RESP 17; TEMP 98.7; O2SAT 100
[2016-12-14 12:19] LABS: VOLUME TUBE # 1 3.9 ML
[2016-12-14 12:20] LABS: GROSS BLOOD TUBE #2 0 (0); GROSS BLOOD TUBE #3 0 (0); SUPERNATE COLOR TUBE #1 CLEAR (CLEAR); SUPERNATE COLOR TUBE #2 CLEAR (CLEAR); SUPERNATE COLOR TUBE #3 CLEAR (CLEAR); SUPERNATE COLOR TUBE #4 CLEAR (CLEAR); VOLUME TUBE # 2 4.1 ML; VOLUME TUBE # 3 4.8 ML; VOLUME TUBE # 4 6.8 ML
[2016-12-14 12:44] LABS: BICARBONATE 23.2 MEQ/L (21.0-32.0); POTASSIUM 3.6 MEQ/L (3.5-5.1)
--- NOTE | 2016-12-14 12:58 | RADRPT ---
EXAM DATE/TIME: 12/14/2016 11:27 [facility] COMPARISON: No previous studies available for comparison. INDICATIONS : Patient with history of migraines in need of lumbar puncture to rule out pseudotumor. MEDICAL HISTORY : Migraines SURGICAL HISTORY : [place] teeth surgery ENCOUNTER: Initial ACUITY: 3 weeks PAIN SCORE: 0/10 LUMBAR PUNCTURE TIME: 1131 hours FLUORO TIME: 0.6 minutes IMAGE SERIES: 0 ACCESS LEVEL: L3-4 OPENING PRESSURE: 18 cm of water CLOSING PRESSURE: Not requested. FLUID: 21 cc of clear CSF was collected and sent to the laboratory for analysis. PROCEDURE : 1. Fluoroscopic guided lumbar puncture. 2. Recording of opening pressure. The risks, benefits and alternatives to the procedure were explained and verbal and written consent w as obtained. The site was prepped in sterile fashion. Full sterile technique was used, including ca p, mask, sterile gloves and gown and a large sterile sheet. Hand hygiene and 2% chlorhexidine and/or betadine/alcohol prep was utilized per protocol for cutaneous antisepsis. The skin and subcutaneous tissues were infiltrated with local anesthetic solution. With fluoroscopic guidance the lumbar thecal sac was punctured at the above level described above and the opening pressure was recorded. The above described fluid was removed without difficulty. The patient tolerated the procedure well and there were no complications. CONCLUSION: 1. Opening pressure was 17-18 CM H2O. 2. 21 cc of CSF was collected. The CSF was clear. Leopoldo Bourgeois MD on December 14, 2016 at 12:56 Board Certified Radiologist. This report was verified electronically.
[2016-12-14 13:24] LABS: CSF LYMPHOCYTES 0 %; CSF NEUTROPHILS 0 %; GROSS BLOOD TUBE #1 0 (0); GROSS BLOOD TUBE #4 0 (0); WBC TUBE #1 0 /MM3 (0-10)
[2016-12-14 13:26] LABS: GROSS BLOOD TUBE #4 0 (0); SUPERNATE COLOR TUBE #4 CLEAR (CLEAR); VOLUME TUBE # 4 6.8 ML
[2016-12-14 13:27] LABS: WBC TUBE #4 1 /MM3 (0-10)
[2016-12-14 13:31] LABS: CSF LYMPHOCYTES 72 %; CSF MONOCYTES 28 %; CSF NEUTROPHILS 0 %
[2016-12-14 14:15] VITALS: BP 126/56; PULSE 76; RESP 16; O2SAT 98
[2016-12-16 19:51] LABS: VDRL CSF NON-REACTIVE (NON-REACTVE)
[2016-12-17 11:56] LABS: CSF CRYPTOCOCCUS AG CONF ND (NOT DETECTD)
[2016-12-17 16:03] LABS: ALBUMIN SERUM 4470 mg/dL (3200 - 4800); IGG CSF 3.8 mg/dL (<=8.1); IGG INDEX CSF 0.36 (<=0.85); IGG SERUM 1100 mg/dL (767 - 1590); IGG/ALBUMIN CSF 0.09 (<=0.21); IGG/ALBUMIN SERUM 0.25 (<=0.40); OLIGOCLONAL BANDING CSF 0 bands; OLIGOCLONAL BANDING INTERPRET 0 bands (<4); OLIGOCLONAL BANDING SERUM 0 bands
== END 2016-12-14 14:15 | disposition home or self-care (01) ==
LOC: HROP 10:05 → HRIP 10:08 → HROP 14:15
PROVIDERS: ATTEND Specialist
DX: G43.909 Migraine, unspecified, not intractable, without status migrainosus (principal); R41.82 Altered mental status, unspecified
CPT/HCPCS: 62270; 77003; 80048; 82040; 82042; 82784; 82945; 83873; 83916; 84157; 85025; 85610; 85730; 86403; 86592; 87015; 87070; 87116; 87205; 87206; 87801; 89051